=== PATIENT | male | born 1960 | race Caucasian/White ===

== ENCOUNTER → 2017-07-06 | Outpatient (CLI) | payer BC, MEDICARE ==
[~2017-07-06] MED LIST: AMLO5TAB2 PO; ASP325TEC PO; ASPI1TAB PO; ATEN-147 PO; CARV25TA PO; CARV3.12T PO; CEPH500C PO; CLIN-81 PO; CULTURELLE CAP1 EACH PO; DIAZ-345 PO; DIAZ5TAB3 PO; FLC100T1 PO; HYDR-2890 PO; HYDR-3714 PO; LISI10TA2 PO; LISI1TAB10 PO; MTR500T PO; NIFEREX FORTE PO; OXYC-272 PO; OXYC-529 PO; OXYC1TAB87 PO; OXYC1TAB92 PO; POLY-IRON; PRD50T PO; SENN1TAB76 PO
--- NOTE | 2017-07-06 15:54 | Diagnostic Imaging Report ---
CLINICAL INDICATION: Patient has had cervical spine surgery two years ago, since then she has had increased pain and popping in the cervical spine. EXAM: MRI of the cervical spine performed without IV contrast. Sequences include sagittal T1, sagittal T2, sagittal T2 fat-sat, and axial T2. COMPARISON: MRI of the cervical spine with contrast dated 11/08/2013. FINDINGS: There are interval postop changes to the cervical spine with placement of C4 through T1 posterior fusion hardware with bilateral spanning rods and pedicle screws. There are interval laminectomies also seen at the C4 through T1 levels. There is interval decompression of the thecal sac in the regions. Limited visualization of the posterior fossa shows no significant abnormality. The cervical spinal cord has normal cord caliber and signal. There is no acute cervical spine fracture. There is straightening of the cervical spine posture. There are degenerative spurs throughout the cervical spine. C1-C2: There are degenerative spurs involving the atlantoodontoid interval anteriorly. There is mild ligamentum flavum buckling. There is no significant central canal narrowing. C2-C3: There is progression of a small posterior disc protrusion/herniation with annular tear. There is a small left-sided uncinate spur which has progressed. There is severe bilateral facet arthropathy/hypertrophy which has progressed. There is mild central canal narrowing. There is severe bilateral neural foramen narrowing which has progressed. C3-C4: There is a small posterior disc spur which appears stable with stable disc spurs extending into the right foraminal region. There is severe bilateral facet arthropathy/hypertrophy. There is stable severe bilateral neural foramen narrowing. There is stable mild central canal narrowing. C4-C5: There is progression of now rmnilbbr-gk-kenzwk loss of intervertebral disc height with annular tear involving the posterior aspect of the disc. There are hypertrophic anterior disc spurs. There is decompression of the thecal sac posteriorly with resolution of the previously seen central canal narrowing. There is bilateral facet arthropathy. There is moderate bilateral neural foramen narrowing which appears to have minimally improved. C5-C6: There is diffuse disc bulge again seen with interval severe loss of intervertebral disc height. There is decompression of the thecal sac posteriorly with resolution of the previously seen central canal narrowing. There is bilateral facet arthropathy with stable severe bilateral neural foramen narrowing. C6-C7: Again seen diffuse disc bulge with slight decreased size of the posterior disc herniation component. There is now moderate loss of intervertebral disc height which has progressed. There is decompression of the thecal sac posteriorly with resolution of the previously seen central canal narrowing. There is stable irhvqnqu-ay-iwosad left neural foramen narrowing and mild right neural foramen narrowing. C7-T1: There is stable grade 1 anterolisthesis of C7 on T1. There is bilateral facet arthropathy. There is stable severe left neural foramen narrowing and no significant right neural foramen narrowing. There is decompression of the thecal sac posteriorly with no significant central canal narrowing. IMPRESSION: 1: There are interval postop changes with C4 through T1 posterior cervical fusion hardware and laminectomies. There is interval decompression/resolution of the previously seen central canal narrowing at the C4 through T1 level. 2: There is persistent gpsimasl-gn-upxxhm bilateral cervical spine neural foramen narrowing and facet arthropathy. 3: There is progression of a C2-C3 small posterior disc herniation with annular tear and progression of small left-sided uncinate spurs. There is severe bilateral neural foramen narrowing which has progressed. There is mild central canal narrowing. 4: Stable degenerative disease of the C3-C4 level. Dictated by: Dictated on workstation # [id number]
== END ==
LOC: RAD 12:44
PROVIDERS: ATTEND Nurse Practitioner Family
DX: M50.21 Other cervical disc displacement, high cervical region (principal); M46.82 Other specified inflammatory spondylopathies, cervical region; M50.31 Other cervical disc degeneration, high cervical region; Z98.890 Other specified postprocedural states
CPT/HCPCS: 72141

== ENCOUNTER → 2019-12-24 | Outpatient (CLI) | payer MEDICARE ==
[~2019-12-24] MED LIST changes: -AMLO5TAB2 PO; +AMLO5TAB9 PO; -OXYC-529 PO; +OXYC5TAB96 PO
--- NOTE | 2019-12-24 10:44 | Diagnostic Imaging Report ---
CT Lung Screening INDICATION: 45-pack year smoking history. Current smoker. TECHNIQUE: Noncontrast, low-dose CT imaging performed according to the lung cancer screening protocol. Auto Exposure Controls were utilize during the CT exam to meet ALARA standards for radiation dose reduction. COMPARISON: CTA chest 12/16/2013. FINDINGS: No suspicious pulmonary nodule or mass. Multiple calcified granulomas. Multiple calcified mediastinal and bilateral hilar lymph nodes. Moderate centrilobular emphysema. No pleural effusion or pneumothorax. Normal heart size. No pericardial effusion. Mild atherosclerotic calcifications including coronary. Normal caliber thoracic aorta and central pulmonary arteries. Visualized upper abdominal contents are unremarkable. No acute osseous findings. Partially visualized postoperative changes in the lower cervical spine. Chronic posterior left 10th rib fracture. IMPRESSION: 1. No suspicious pulmonary nodule or mass. Recommend continued annual screening with low-dose chest CT in 12 months. 2. Evidence of prior granulomatous infection. 3. Mild atherosclerotic calcifications in the coronary arteries. LUNG-RADS CATEGORY: 1. MODIFIER: None. Dictated by: Dictated on workstation # [id number]
== END ==
LOC: RAD 09:07
PROVIDERS: ATTEND Nurse Practitioner Family
DX: Z12.2 Encounter for screening for malignant neoplasm of respiratory organs (principal); J84.10 Pulmonary fibrosis, unspecified; I25.10 Atherosclerotic heart disease of native coronary artery without angina pectoris; F17.210 Nicotine dependence, cigarettes, uncomplicated

== ENCOUNTER → 2020-07-18 | Day surgery (SDC) | payer MEDICARE ==
[~2020-07-18] VITALS: Ht 175 cm; Wt 72.5 kg
[2020-07-18] VITALS (14 sets, daily range): BP systolic 97–129; BP diastolic 53–79
[~2020-07-18] MED LIST changes: +ACETAMINOPHEN 325 MG TABLET PO PRN; +AMLO-250 PO; -AMLO5TAB9 PO; +FLUMAZENIL (ROMAZICON) 0.1 MG/ML 10 ML VIAL IV ONE; +GLUCAGON EMERGENCY 1 MG/KIT IM ONE; +HURRICAINE EXT TUBE (BENZOCAINE) ONE; +HURRICAINE EXT TUBE (BENZOCAINE) XX PRN; +HYDROcodone/APAP 5 MG/325 MG (LORTAB) TAB PO PRN; +LIDOCAINE JELLY 2% 6 ML SYRINGE MM PRN; +LIDOCAINE JELLY 2% 6 ML SYRINGE ONE; +MIDAZOLAM 5 MG/5 ML (VERSED) VIAL IV ONE; +MIDAZOLAM 5 MG/5 ML (VERSED) VIAL ONE; +NALOXONE 0.4 MG/ML 1 ML (NARCAN) VIAL IVP PRN; +NS IV 500 ML 500 ML IV PRN; +NS IV 500 ML 500 ML ONE; +ONDANSETRON 4 MG/2 ML (SDV) Z0FRAN IVP PRN; +OXC5T PO; -OXYC5TAB96 PO; +PANT40TA2 PO; +fentaNYL INJECTION 100 MCG/2 ML AMP IVP ONE; +fentaNYL INJECTION 100 MCG/2 ML AMP ONE; +morphine INJ 10 MG/ML 1ML (SYR OR VIAL) IVP PRN
--- NOTE | 2020-07-18 13:16 | ED EENT ---
History of Present Illness General Chief Complaint: Oral/Throat Problems Stated Complaint: FOOD BOLUS Nursing Triage Note: pt presents to ed with complaints of a peice of roast beef stuck in his throat since yesterday. reports inability to swallow saliva or liquids. pt denies soa or difficulty breathing. Source: patient Exam Limitations: no limitations History of Present Illness Date Seen by Provider: Jul 18, 2020 Time Seen by Provider: 13:13 Initial Comments Patient is a 60-year-old male who presents to the emergency department today with a chief complaint of a piece of roast beef stuck in his throat. Patient states that he was eating roast beef without his dentures and yesterday at around noon when he felt a piece get stuck. Since that time the patient's not been able to tolerate any food or fluids. Patient states he is nauseated. Every time he tries to drink water it comes back up. Patient states he has had this happen before but it resolved spontaneously. Patient states he has had upper endoscopy in the past for ulcer diagnosis. 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 Patient has a history of hypertension and hyperlipidemia that is controlled with medication. No recent illnesses, fevers, chills cough congestion or Covid concerns. All other review of systems reviewed and negative except as stated. Timing/Duration: abrupt Severity: moderate Location: throat Prearrival Treatment: no prearrival treatment Associated Symptoms: denies symptoms Allergies and Home Medications Allergies Coded Allergies: naproxen (Unverified Allergy, Unknown, 12/23/10) Home Medications Amlodipine Besylate 5 Mg Tablet, 5 MG PO BID, (Reported) Carvedilol 25 Mg Tablet, 25 MG PO BID, (Reported) Oxycodone Hcl 5 Mg Tablet, 5 MG PO Q6H PRN for PAIN, (Reported) PRN PAIN Pantoprazole Sodium 40 Mg Tablet.dr, 40 MG PO DAILY Prescribed by: EUN GAN on 07/18/20 9790 Patient Home Medication List Home Medication List Reviewed: Yes Review of Systems Review of Systems Constitutional: see HPI Eyes: No Symptoms Reported Ears: No Symptoms Reported Nose: no symptoms reported Mouth: no symptoms reported Throat: painful swallowing, difficulty with fluids Respiratory: no symptoms reported Cardiovascular: no symptoms reported Gastrointestinal: dysphagia Musculoskeletal: no symptoms reported Skin: no symptoms reported All Other Systems Reviewed Negative Unless Noted: Yes Past [place]-Uq[place] Hx Patient Social History Alcohol Use: Regular Use Alcohol Beverage of Choice: Beer Recreational Drug Use: No Smoking Status: Current Everyday Smoker Type Used: Cigarettes Recent Foreign Travel: No Contact w/Someone Who Travel: No Recent Infectious Disease Expo: No Physical Abuse: No Sexual Abuse: No Mistreated: No Fear: No Immunizations Up To Date Tetanus Booster (TDap): Less than 5yrs PED Vaccines UTD: No Date of Influenza Vaccine: Mar 31, 2014 Past Medical History Surgeries: Yes (NECK-RODS PLACED, COLON RESECTION, COLOSTOMY, ATTEMPTED ABDOMINAL ABC DRAIN) Abdominal, Orthopedic Respiratory: No Cardiac: Yes High Cholesterol, Hypertension Neurological: No Reproductive Disorders: No Sexually Transmitted Disease: No HIV/AIDS: No Gastrointestinal: Yes (reversal of colostomy, had perforations in colon) Colitis, Gastroesophageal Reflux, Diverticulosis, Ulcer Musculoskeletal: Yes (CERVICAL STENOSIS) Arthritis Endocrine: No Loss of Vision: Denies Hearing Impairment: Denies Cancer: No Psychosocial: No Integumentary: No Blood Disorders: No Adverse Reaction/Blood Tranf: No (had 2 units given in 2013.) Family Medical History Family history: Gastrointestinal disease G8 SISTER (CROHN'S) Family history: Hypertension 19 FATHER G8 BROTHER G8 SISTER Hypertension 19 FATHER G8 BROTHER G8 SISTER Parkinson's disease 19 MOTHER Parkinson's disease 19 MOTHER No Family History of: AIDS Abdominal aortic aneurysm Abdominal aortic aneurysm Alcoholism Alcoholism Alzheimer's disease Aphasia Arthritis Asthma Cancer Cancer of mouth Cardiovascular disease Cataracts Colon cancer Completed stroke Congenital disease Congenital heart disease Coronary thrombosis Cystic fibrosis Deafness or hearing loss Dementia Dementia Diabetes mellitus Drug abuse Dysphasia Family history: Alzheimer's disease Family history: Arthritis Family history: Asthma Family history: Breast disease Family history: Cardiovascular disease Family history: Diabetes mellitus Family history: Thyroid disorder Fibrocystic disease of breast Gastroenteritis Headache disorder History of - respiratory disease Infertility Kidney disease Kidney disease Myocardial infarction Neoplasm Not obtainable due to adoption Osteoporosis Prostate cancer Psychotic disorder Respiratory disorder Seizure disorder Stroke Thyroid disease Tuberculosis Physical Exam Vital Signs Vital Signs - First Documented 07/18/20 07/18/20 07/18/20 12:57 15:47 15:50 Temp 36.3 Pulse 95 Resp 18 B/P (MAP) 140/82 (101) Pulse Ox 95 O2 Delivery Room Air O2 Flow Rate 2 Height, Weight, BMI Height: 5'9.00" Weight: 176lbs. 2.0oz. 79.709878rd; 23.00 BMI Method:Stated General Appearance: WD/WN, no apparent distress Eyes: bilateral eye normal inspection, bilateral eye PERRL, bilateral eye EOMI Mouth/Throat: normal mouth inspection Neck: full range of motion Cardiovascular: regular rate, rhythm Respiratory: lungs clear, normal breath sounds Gastrointestinal: non tender, soft Neurologic/Psychiatric: alert, normal mood/affect, oriented x 3 Skin: normal color, warm/dry Progress/Results/Core Measures Results/Orders My Orders Medications Given in ED Vital Signs/I&O Blood Pressure Mean: 101 Progress Progress Note : Time: 13:16 Progress Note 60-year-old with a food bolus. We will try 1 mg of glucagon to see if we can alleviate the obstruction. If not we will call Dr. Gan on for general surgery for endoscopy to remove the food bolus. [address] Gan. Would like the patient to be admitted to the hospital for endoscopy tomorrow. Requests IV fluids, IV Protonix Ativan and glucagon second bolus. Departure Communication (Admissions) Time/Spoke to Admitting Phy: 13:[address] Gan; will admit per his request with IV fluids, IV ativan and protonix and a second round of IV glucagon. Impression Primary Impression: Foreign body in pharynx Qualified Codes: T17.208A - Unspecified foreign body in pharynx causing other injury, initial encounter Disposition: 01 HOME, SELF-CARE Condition: Stable Admissions Decision to Admit Reason: Admit from ER (General) Decision to Admit/Date: Jul 18, 2020 Time/Decision to Admit Time: 14:00 Departure-Patient Inst. Decision time for Depature: 17:49 Referrals: CARMEN BUCHANAN (PCP) Primary Care Physician ROMEO ROSE APRN (Family) Primary Care Physician Patient Instructions: Esophageal Dilation Add. Discharge Instructions: Follow-up per general surgery guidelines Scripts Pantoprazole Sodium (Protonix) 40 Mg Tablet. 40 MG PO DAILY, #90 TAB Prov: EUN GAN MD 07/18/20 MARIBETH MACKEY MD Jul 18, 2020 13:16
--- NOTE | 2020-07-18 15:54 | Progress Note-Pre Operative ---
Pre-Operative Progress Note H&P Reviewed The H&P was reviewed, patient examined and no changes noted. Date Seen by Provider: Jul 18, 2020 Time Seen by Provider: 15:00 Date H&P Reviewed: Jul 18, 2020 Time H&P Reviewed: 15:00 Pre-Operative Diagnosis: dysphagia, esophageal FB EUN LOWERY MD Jul 18, 2020 15:54
--- NOTE | 2020-07-18 15:54 | Conscious Sedation/ASA ---
Conscious Sedation Pre-Proced Time 15:00 ASA Score 2 For ASA 3 and 4: Consider anesthesia and medical clearance. Also, for patients with a history of failed moderate sedation consider anesthesia. Airway Lungs Heart ASA score ASA 1: a normal healthy patient ASA 2: a patient with a mild systemic disease (mid diabetes, controlled hypertension, obesity ASA 3: a patient with a severe systemic disease that limits activity (angina, COPD, prior Myocardial infarction) ASA 4: a patient with an incapacitating disease that is a constant threat to life (CHF, renal failure) ASA 5: a moribund patient not expected to survive 24 hrs. (ruptured aneurysm) ASA 6: a declared brain- patient whose organs are being harvested. For emergent operations, add the letter E after the classification Mallampati Classification Grade 2 Sedation Plan Analgesia, Amnesia, Plan communicated to team members, Discussed options with patient/fam, Discussed risks with patient/fam The patient is an appropriate candidate to undergo the planned procedure, sedation, and anesthesia. The patient immediately re-assessed prior to indication. EUN LOWERY MD Jul 18, 2020 15:54
--- NOTE | 2020-07-18 15:56 | Discharge Inst-Surgical ---
D/C Lap Instructions-KIDO New, Converted, or Re-Newed RX: RX on Chart Follow Up Appt in 6 weeks Activity as tolerated High Fiber Diet 25g or more per day Avoid Alcohol, Caffeine, Spicy [place] and Acid foods. Drink 64 fluid oz or more of fluids per day. Symptoms to Report: Fever over 101 degree F, Nausea/Vomiting If any problems/questions: Contact your physician or go to Emergency Room EUN LOWERY MD Jul 18, 2020 15:56
--- NOTE | 2020-07-18 16:22 | HISTORY AND PHYSICAL ---
DATE OF SERVICE: ATTENDING EDIPHONE OPERATOR: SITA Jose. HISTORY OF PRESENT ILLNESS: The patient is a 60-year-old male who presented to the Emergency Department with dysphagia. He had a piece of roast beef and after that was unable to take in anything more and felt substernal pressure sensation. He states that this has happened before in the past requiring removal of esophageal foreign body. He also does have a history of gastroesophageal reflux disease. PAST MEDICAL HISTORY: Gastroesophageal reflux disease, hypertension, degenerative joint disease, diverticulosis. PAST SURGICAL HISTORY: Cervical spine ORIF, colon resection. ALLERGIES: NAPROXEN. MEDICATIONS: 1. Amlodipine 25 mg b.i.d. 2. Carvedilol 25 mg b.i.d. 3. Oxycodone p.r.n. SOCIAL HISTORY: Positive smoke 40 pack years. Does drink beer daily. VITAL SIGNS: Temperature 36.3, blood pressure 140/82, pulse 95, respirations 18, pulse ox 95% on room air. REVIEW OF SYSTEMS: A well-nourished male currently uncomfortable secondary to the dysphagia. He is not experiencing any nausea or vomiting as well as no hematemesis, no coffee ground emesis. No diarrhea, constipation, no red blood per rectum, no dark tarry stools. No fever, chills, no recent inadvertent weight loss. All other review of systems negative. PHYSICAL EXAMINATION: CHEST: Clear. Good breath sounds bilaterally. HEART: Regular, no murmurs. EXTREMITIES: No lower extremity edema, negative Homans sign. HEENT: No scleral icterus. NECK: No cervical lymphadenopathy. ABDOMEN: Soft, nontender, nondistended. There is pain in the epigastric region upon deep palpation. No peritoneal signs. SKIN: Warm, dry. ASSESSMENT AND PLAN: A 68-year-old male with an esophageal foreign body as well as history of gastroesophageal reflux disease and likely a distal esophageal stricture. We will proceed with an EGD biopsy as well as removal of foreign body and balloon dilatation if indicated. Job ID: [id number] DocumentID: [id number] Dictated Date: 07/18/2020 15:53:51 Traffic Lieutenant Date: 07/18/2020 16:22:16 Dictated By: EUN LOWERY MD
--- NOTE | 2020-07-18 17:01 | Progress Note-Post Operative ---
Post-Operative Progess Note Surgeon (s)/Flight Service Specialist (s) Surgeon EUN LOWERY MD Flight Service Specialist: none Pre-Operative Diagnosis dysphagia, esophageal FB Post-Operative Diagnosis FB distal eospagus, moderate distal esophageal stricture, reflux esophagitis(stage 2-3), small HH(2.5cm), moderate gastritis, no distal obstructions. Procedure & Operative Findings Date of Procedure 07/18/20 Procedure Performed/Findings EGD with removal esophageal FB, bx, balloon dilatation. Anesthesia Type cs Estimated Blood Loss Estimated blood loss (mL): minimal Specimens/Packing Specimens Removed ge jxn, antrum EUN LOWERY MD Jul 18, 2020 17:01
--- NOTE | 2020-07-18 21:12 | OPERATIVE REPORT ---
DATE OF SERVICE: 07/18/2020 ATTENDING PRIMARY WARP KNITTER HELPER: MINDY Jose PREOPERATIVE DIAGNOSIS: Dysphagia with esophageal foreign body. POSTOPERATIVE DIAGNOSES: Dysphagia with esophageal foreign body with moderate distal esophageal stricture, small hiatal hernia approximately 2 cm in size, moderate gastritis. No distal obstructions. PROCEDURE: EGD with removal of esophageal foreign body biopsies and balloon dilatation of the distal esophageal stricture. SURGEON: Eun Lowery MD. ANESTHESIA: Conscious sedation. ESTIMATED BLOOD LOSS: Minimal. FINDINGS: Same as postoperative diagnoses. DISPOSITION: The patient tolerated the procedure well. INDICATIONS: The patient is a 60-year-old male who presented with dysphagia including substernal pressure sensation and inability to drink liquids or swallow his own saliva. This started after lunch and persisted. He states that he has had this before requiring EGD and removal of esophageal foreign body. He does have some risk factors for gastroesophageal reflux disease as well as peptic ulcer disease including significant smoking and alcohol history. He is currently not on any acid reducers as well. DESCRIPTION OF PROCEDURE: The patient was brought to the endoscopy suite, laid in the left lateral decubitus position with the head slightly elevated. After adequate IV pain and stated medications and conscious sedation anesthesia, the mouthpiece was applied. The endoscope was placed in the mouth, visualizing the pharynx and the hypopharyngeal region. Vocal cords, epiglottis and vallecula identified and appeared to be normal. The endoscope was then gently intubated into the esophageal opening and esophagus insufflated. The endoscope was then advanced through the first, second and third portion of the esophagus. At the distal esophagus, an esophageal foreign body, which resembled a meat bolus identified with very slow and gentle traction along the food bolus. This did reduce into the stomach with visualization of good hemostasis as well as no mucosal tears. The endoscope was then advanced in the stomach and endoscope retroflexed, visualizing approximately 2 cm hiatal hernia. There was a moderate gastritis. No formal ulcerations, polyps, or any neoplasms. A biopsy was taken of the antrum to rule out H. pylori with visualization of good hemostasis. A biopsy was also taken of the GE junction. The endoscope was then advanced through the pylorus and the first and second portion of duodenum, which appeared normal with no distal obstructions. We then proceeded with balloon dilatation of the distal esophageal stricture and the balloon was placed in the stomach and pulled back to the area of stricture. We then proceeded to 2, then 4 and 6 atmospheres of pressure or 20 mm in luminal diameter with moderate resistance and left this in place for 60 seconds. The balloon was then desufflated and removed with visualization of good hemostasis as well as no mucosal tears. The endoscope was then slowly withdrawn while taking a second look and suctioning of residual air with no additional findings. The patient tolerated the procedure well. We will recommend the necessary lifestyle and diet accommodation including moderation or cessation of smoking and alcohol as well as caffeinated beverages, spicy, greasy and acidic foods. He also needs to take in small and more frequent meals, avoidance of eating at night as well as head elevation while lying supine. He also needs to eat slowly and chew thoroughly. We will also start him on Protonix 40 mg daily. If he has slight recurrence of symptoms, we would rather have him follow up in office as an outpatient, so we can schedule him for a repeat dilatation. Job ID: [id number] DocumentID: [id number] Dictated Date: 07/18/2020 16:34:26 Irrigator Valve Pipe Date: 07/18/2020 21:12:05 Dictated By: EUN LOWERY MD
== END | disposition home or self-care (01) ==
LOC: EDUNIT# 12:47 → ER 12:48 → SDC 14:33
PROVIDERS: ATTEND Surgery
DX: R13.10 Dysphagia, unspecified (principal); K22.2 Esophageal obstruction; K44.9 Diaphragmatic hernia without obstruction or gangrene; K29.70 Gastritis, unspecified, without bleeding; T18.108A Unspecified foreign body in esophagus causing other injury, initial encounter; K21.00 Gastro-esophageal reflux disease with esophagitis, without bleeding; I10 Essential (primary) hypertension; M19.90 Unspecified osteoarthritis, unspecified site; K57.90 Diverticulosis of intestine, part unspecified, without perforation or abscess without bleeding; F17.210 Nicotine dependence, cigarettes, uncomplicated; Z79.899 Other long term (current) drug therapy; Z88.5 Allergy status to narcotic agent
CPT/HCPCS: 88305; 96372

== ENCOUNTER → 2020-12-25 | Outpatient (CLI) | payer MEDICARE ==
[~2020-12-25] MED LIST changes: -ACETAMINOPHEN 325 MG TABLET PO PRN; -FLUMAZENIL (ROMAZICON) 0.1 MG/ML 10 ML VIAL IV ONE; -GLUCAGON EMERGENCY 1 MG/KIT IM ONE; -HURRICAINE EXT TUBE (BENZOCAINE) ONE; -HURRICAINE EXT TUBE (BENZOCAINE) XX PRN; -HYDROcodone/APAP 5 MG/325 MG (LORTAB) TAB PO PRN; -LIDOCAINE JELLY 2% 6 ML SYRINGE MM PRN; -LIDOCAINE JELLY 2% 6 ML SYRINGE ONE; -MIDAZOLAM 5 MG/5 ML (VERSED) VIAL IV ONE; -MIDAZOLAM 5 MG/5 ML (VERSED) VIAL ONE; -NALOXONE 0.4 MG/ML 1 ML (NARCAN) VIAL IVP PRN; -NS IV 500 ML 500 ML IV PRN; -NS IV 500 ML 500 ML ONE; -ONDANSETRON 4 MG/2 ML (SDV) Z0FRAN IVP PRN; -fentaNYL INJECTION 100 MCG/2 ML AMP IVP ONE; -fentaNYL INJECTION 100 MCG/2 ML AMP ONE; -morphine INJ 10 MG/ML 1ML (SYR OR VIAL) IVP PRN
--- NOTE | 2020-12-25 11:11 | Diagnostic Imaging Report ---
CT Lung Screening INDICATION:50 year smoking history TECHNIQUE: Noncontrast, low-dose CT imaging performed according to the lung cancer screening protocol. Auto Exposure Controls were utilize during the CT exam to meet ALARA standards for radiation dose reduction. COMPARISON:12/24/2019 FINDINGS:The previous CT low-dose lung cancer screening exam of 12/24/2019 failed to show any sign of a solid mass that would suggest malignancy. On this exam, there is still no suspicious parenchymal lung mass identified. Small calcified granulomas in the left lung base seen previously are again evident and no different. There are mild emphysematous changes involving both lungs but there is no sign of an acute cardiopulmonary abnormality. The heart is not enlarged but there are coronary calcifications evident. There are mild emphysematous changes involving both lungs. However there is no evidence for failure, pneumonia or for pleural effusion to indicate an acute abnormality The heart size is within normal limits and coronary artery calcifications are evident. The aorta is not abnormally dilated. There is no mediastinal or hilar adenopathy. However there are a few calcified nodes in the subcarinal region in both antonia and in the pretracheal region of the right mediastinum. I suspect these calcified nodes are sequela of prior granulomatous infection. The thyroid gland where visualized is unremarkable. The images through the upper abdomen again shows liver is of lower density than usually seen. This does suggest fatty metamorphosis. The bone windows are unremarkable for fracture or for destructive lesion. IMPRESSION: 1. There is still no parenchymal lung mass to suggest neoplastic disease. A followup low-dose lung cancer screening exam in one year would be recommended for further evaluation. 2. There are mild emphysematous changes involving both lungs but there is no sign of an acute abnormality. 3. The heart is not enlarged but there are coronary artery calcifications evident. LUNG-RADS CATEGORY:1. MODIFIER: OTHER SIGNIFICANT FINDINGS: Dictated by: Dictated on workstation # [id number]
== END ==
LOC: RAD 10:15
PROVIDERS: ATTEND Nurse Practitioner Family
DX: Z12.2 Encounter for screening for malignant neoplasm of respiratory organs (principal); J43.9 Emphysema, unspecified; I25.10 Atherosclerotic heart disease of native coronary artery without angina pectoris; F17.210 Nicotine dependence, cigarettes, uncomplicated
CPT/HCPCS: 71271